=== PATIENT | male | born 1950 | race Caucasian/White ===

== ENCOUNTER 2020-06-19 05:33 | Observation (INO) ==
--- NOTE | 2020-06-18 11:19 | Anesthesiology Consultation ---
Date of Service June 18, 2020 Assessment & Plan (1) Encounter for pre-operative examination: - Per assessment 06/18: Travel screen negative. No known COVID-19 positive contacts or current COVID-19 related symptoms. Patient had COVID testing 06/15 which was negative. - Check BSG AM DOS Chart Review Chart Review: Acceptable Risk for Surgery and Patient seen in Pre Admission Testing Teaching & Discussion Pre-Anesthesia Teaching/Discussion Notes: Instructed NPO after midnight before surgery,except medications with 15 cc of water. Medication instructions provided according to the PAT guidelines. History Surgery Operation Date: 06/19/20 07:00 Proposed Procedures p Right ORIF Tibia Fracture - Steven Laura Richard MD Height/Weight Height: 5 ft 7 in Weight: 85 kg Allergies Allergy/AdvReac Type Severity Reaction Status Date / Time No Known Drug Allergies Allergy Unknown ` Verified 06/18/20 11:17 Medications Home Medications Medication Instructions Recorded Confirmed Last Taken acetaminophen [Tylenol] 325 mg PO QID PRN 06/18/20 06/18/20 Unknown aspirin 81 mg PO UD 06/18/20 06/18/20 Unknown cholecalciferol (vitamin D3) 25 mcg PO QAM 06/18/20 06/18/20 Unknown [Vitamin D3] metformin 500 mg PO QPM 06/18/20 06/18/20 Unknown trazodone 50 mg PO HS 06/18/20 06/18/20 Unknown Past Medical History Medical History Insomnia Prediabetes Past Surgical History Surgical History History of hand surgery circular saw accident and repair of fingers Social History Smoking Status: Never smoker Testing Laboratory Results 06/15/20 WBC 7.54 H/H 15.4/46.0 PLATELETS 173 SODIUM 138 POTASSIUM 3.7 CHLORIDE 105 CO2 26 BUN 23 CREATININE 1.18 GLUCOSE 111 Electrocardiogram Date: 06/15/20 SR with frequent PVC's at 94bpm. LAD. NS TWA. Chest X-Ray Date: 06/15/20 FINDINGS: The lungs are clear. Cardiac silhouette is normal in size. No pleural effusions. No pneumothorax. Old, healed left-sided rib fractures. IMPRESSION: No acute process.
--- NOTE | 2020-06-18 15:42 | History & Physical Report ---
Date of Service June 18, 2020 Assessment & Plan (1) Closed right tibial fracture: Patient is scheduled for surgery with Dr Richard on 06-19-20 for an Open Reduction Internal Fixation of a right tibia fracture. Dr Richard saw patient in office today and discussed potential risks, complications, and outcomes of surgery. The consent was signed by the patient as well as Dr Richard. The patient had pre-op work up in the ED including EKG and blood work. He had a rapid COVD 19 test in the ED as well. Patient is aware of COVD 19 risks. He is asymptomatic of any COVD 19 symptoms. This surgery is necessary and urgent for fixation fracture to allow early mobility and decrease chance of DVT/PE, prevent further fracture mal-alignment, destruction of soft tissue or o structures, or development of compartment syndrome. Patient was advised to hold his metformin. He was given phone number to call hospital for arrival time. Post-op pain medication was discussed and oxycodone was sent to pharmacy. Patient will also rely on tylenol for mild to moderate pain. He was advised to take ASA 81mg BID for DVT prophylaxis. He was given follow-up appointments for PT and office. Plan will be to stay overnight. Further discharge instructions to follow. Present on Admission?: Yes Admission and Anticipated Discharge Date Admission Date: 06-19-20 Anticipated date of discharge: 06/20/20 History of Present Illness Chief Complaint: Right Tib-Fib Fracture Primary Care Provider: CHINYERE Carmichael Nico is 69 yo male who was seen today for History and Physical Pre-Op examination leading up to surgery with Dr Richard on 06-19-20 for an Open Reduction Internal Fixation of Right Tibia. Patient was seen in ED on Thursday and follow-up with Dr Richard today in the office. He was playing volleyball with his grand children earlier Thursday afternoon when he landed awkwardly injuring his right leg. Xrays in the ED were obtained and Dr Richard was consulted for further evaluation and treatment. Patient was found to have a right tib-fib fracture and was splinted and advised be non-weightbearing and follow-up with Dr Richard today. Dr Richard discussed with the patient his diagnosis and treatment options ranging from conservative to surgical intervention. Patient would like to proceed with surgery. Allergies Allergy/AdvReac Type Severity Reaction Status Date / Time No Known Drug Allergies Allergy Unknown ` Verified 06/18/20 11:17 Home Medications Home Medications Medication Instructions Recorded Confirmed Type acetaminophen [Tylenol] 325 mg PO QID PRN 06/18/20 06/18/20 History aspirin 81 mg PO UD 06/18/20 06/18/20 History cholecalciferol (vitamin D3) 25 mcg PO QAM 06/18/20 06/18/20 History [Vitamin D3] metformin 500 mg PO QPM 06/18/20 06/18/20 History trazodone 50 mg PO HS 06/18/20 06/18/20 History Past Med/Surg History Medical History Insomnia Prediabetes Surgical History History of hand surgery circular saw accident and repair of fingers Social History Smoking Status: Never smoker Second Hand Exposure: No; Do You Dip or Chew Tobacco: No; Tobacco Cessation Education Requested by Patient: No Hx Alcohol Use: No Hx Substance Use: No Preferred Language: [place] Communication Ability: Effective Hand Hardener Required: No Beliefs That Will Affect Care: None marital status: Single Current Living Situation: Significant Other current occupational status: retired Other Information That Helps Us Care for You: No Feels Safe at Home: Yes Safety Concerns: Feels Safe At This Time Assistive Devices: Brace/Splint/Immobilizer and Walker Review of Systems Review of Systems: All systems reviewed & are unremarkable except as noted in HPI & below Physical Exam Physical Exam: CONSTITUTIONAL: Healthy and well nourished. Patient does not appear in any acute distress. 175cm tall, 90kg weight, 36.4 temp, 110/60 BP, 97 pulse ox, 100 HR HEENT: Normocephalic, atraumatic. Wearing glasses. PERRL. Extra-ocular movements intact. Nose nares patient. Mouth mucosa moist. Dentition good. NECK: Full active range of motion without discomfort. RESPIRATORY: Clear to auscultation bilaterally with no wheezing, crackles, rhonchi or stridor. CARDIOVASCULAR: Regular rate and rhythm with no murmurs, rubs or gallops. MUSCULOSKELETAL: Examination of the right lower extremity reveals splint intact. Able to wiggle toes. Sensation to toes intact. Upper calf is soft and supple to palpation. Patient has no tenderness to palpation about the knee joint lines or peripatellar region. Results & Data Results & Data ([facility]) Diagnostic Findings Print [facility] [place], [place] [phone] XRay Report Patient: NICO WEI Admit Date: 06/15/20 MR#: [id number] Address1: [address] [place] [address] Acct ID:[id number] Address2: Date: 1950 [facility] Zip: [place] [id number] Age: 69 Location: ED Sex: M Room/Bed: Att Phy: Diagnosis: LEG INJURY/PAIN Tiera Phy: Silvana Allen CRNP Service Date: 06/15/20 Fam Phy: Interpreting Phy: Brandt Martinez Admit Phy: Ordering Phy: Jordon Astorga MD cc: ~ XR tibia fibula RT 2V HISTORY: 69 years-old Male S/P TRIP AND FALL acute right leg pain status post fall COMPARISON: None TECHNIQUE: 2 views of the right tibia and fibula FINDINGS: There is an acute obliquely oriented linear displaced fracture of the proximal fibular metadiaphysis which is displaced anteriorly 4 mm. There is an acute obliquely oriented fracture involving the distal diaphyseal tibia with 9 mm lateral and 9 mm posterior displacement with slight apex molar angulation of 40 degrees. 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 IMPRESSION: 1. Acute oblique displaced fracture of the distal tibial diaphysis. 2. Acute mildly displaced oblique fracture of the proximal fibular metadiaphysis. ACT 112: Negative or not required by law. The above report was generated using voice recognition software. It may contain grammatical, syntax or spelling errors. Electronically signed by: Alton Martinez M.D. 06/15/2020 3:45 PM Dictated: 06/15/201541 Transcribed: 06/15/201541 (1) Closed right tibial fracture Encounter type: initial encounter Fracture morphology: other fracture Tibia location: distal Qualified Code(s): S82.391A - Other fracture of lower end of right tibia, initial encounter for closed fracture
[2020-06-19] MEDS ORDERED: LR 15ML/HR IV SCH (06:00)
[2020-06-19] MEDS ORDERED: BUPIVACAINE 0.5 % 5 MG/1 ML MPF 30ML VIAL ONE (06:36)
[2020-06-19] MEDS ORDERED: MIDAZOLAM HCL 1 MG/ML 2ML VIAL ONE ×2 (06:37→07:20)
[2020-06-19] MEDS ORDERED: fentaNYL citrate 100 MCG/2 ML VIAL ONE (06:37)
[2020-06-19] MEDS ORDERED: LIDOCAINE/EPINEPHRINE 1% 20 ML VIAL ONE (06:37)
--- NOTE | 2020-06-19 06:38 | History & Physical Bridge Note ---
Date of Service June 19, 2020 History & Physical Bridge Note I have examined the patient, reviewed the History & Physical and in the interval since the performance of the History & Physical I have noted the following changes of clinical significance: no changes noted Patient is aware of the risks, is asymptomatic, and tested negative for COVID- 19.
[2020-06-19] MEDS ORDERED: ROPIVACAINE 0.5% 5 MG/ML 30 ML VIAL ONE (07:22)
[2020-06-19] MEDS ORDERED: BUPIVACAINE 0.5 % 5 MG/1 ML PF 10ML VIAL ONE (07:22)
[2020-06-19] MEDS ORDERED: LIDOCAINE HCL 2% 2 ML VIAL/AMP(20MG/ML) INFIL ONE (08:03)
[2020-06-19] MEDS ORDERED: PROPOFOL IV EMULSION 10 MG/ML 20 ML VIAL IV ONE ×4 (08:03→10:26)
[2020-06-19] MEDS ORDERED: ONDANSETRON INJ 2 MG/ML 2 ML VIAL ONE (08:03)
--- NOTE | 2020-06-19 10:54 | Post Operative Brief Note ---
Immediate Post Op Note v1 Date of Surgery June 19, 2020 Pre & Post Diagnosis Operation Date: 06/19/20 07:00 Pre-Op Diagnosis: Closed right tibial fracture Post-Op Diagnosis: Closed right tibial fracture I identified the patient and participated in the time-out.: Yes Procedure Operation Date: 06/19/20 07:00 Actual Procedures p Right Open Reduction Internal Fixation Tibia Fracture(Right) - Steven Richard MD Surgeon Steven Richard MD Food Consultant Brijesh Shelton PA-C (No fellow avail) Estimated Blood Loss 100 Findings Consistent with Post-Op Diagnosis Fluids 1000 cc Anesthesia Type MAC Spinal Regional Complications none
--- NOTE | 2020-06-19 10:55 | Operative Report ---
Post Operative Report Pre & Post Diagnosis Operation Date: 06/19/20 07:00 Pre-Op Diagnosis: Closed right tibial fracture Post-Op Diagnosis: Closed right tibial fracture I identified the patient and participated in the time-out.: Yes Procedure Operation Date: 06/19/20 07:00 Actual Procedures p Right Open Reduction Internal Fixation Tibia Fracture(Right) - Steven Richard MD Surgeon Steven Richard MD Collection Support Specialist Brijesh Shelton PA-C (No fellow avail) Estimated Blood Loss 100 Findings See Below Displaced Right Tibial shaft fracture. Non-displaced proximal fibula fracture. Pre-patellar bursitis. Fluids 1000 cc Specimens n/a Anesthesia Type MAC Spinal Regional Complications none Indications The patient is a 69 year old male who sustained a right tibia fracture from a fall while playing volleyball with his grand children. The patients treatment options of conservative versus surgical intervention were discussed. I recommended surgery. The patient understands the risks of surgery, which include but are not limited to: bleeding, infection, re-operation, damage to nerves and arteries, continued pain, failure of the hardware, mal-union, non- union, DVT, and . The patient understands all of these instructions and explanations, all of their questions have been satisfactorily addressed. The patient has elected to proceed with surgery and the informed consent was signed. Description of Procedure IMPLANTS: 1. Synthes 10 mm x 345 mm Tibial Nail. 2. 5 x 32 & 34 mm proximal Locking screw. 3. 5 x 36 & 42 mm distal locking screws. 4. Standard 5 mm titanium end cap. PROCEDURE: The patient was taken to the Operating Room and placed in the supine position on the radiolucent Guevara table after general anesthesia was administered. A multidisciplinary time-out was performed identifying my initials on the right lower limb as the correct and operative limb. Prior to the incision being made, 2 grams of intravenous Ancef were given. Fluoroscopy was brought in to ensure adequate X-rays images could be obtained. The right lower extremity was prepped in the standard fashion. The planned anterior knee incision was marked. This incision and the stab incisions for the locking screws were injected with a 50:50 mixture of 1% Lidocaine with epi and 0.5% Bupivacaine plain for a total of 15 cc. The planned anterior incision was made and carried down through the prepatellar bursa which had mild chronic inflammation to the peritenon. The peritenon was split exposing the patellar tendon and was elevated to expose the patellar tendon, which was split in-line with its fibers to gain the starting point. Fluoroscopy was used to find the starting point. A starting guide wire was placed and the starting reamer was used to create the entry hole. While reducing the fracture with manual traction, the long guide wire was then placed across the fracture into the distal fragment down to the distal tibial physeal scar centrally in both the AP and lateral projections. The tibial canal was then sequentially reamed from an 8 up to a 12 mm reamer. A size 10 mm implant was selected. The implant was then inserted without difficulty. Small second and third incisions were made for placement of the proximal locking screws, which were placed using the aiming guide. An end cap was then placed in the standard fashion. The distal locking screws, 2 medial to lateral, were placed with perfect [place] technique. Final x-rays were obtained showing near anatomic alignment of the tibial shaft fracture and the proximal fibular fracture remained non-displaced. The wounds were copiously irrigated. The patellar tendon was closed with 0 Vicryl. The peritenon was closed with 2-0 Vicryl. The subcutaneous tissue was closed with 3-0 Vicryl. The anterior incision and stab incisions were closed with dar. The incisions were covered with Xeroform, 4x4s, ABD, sterile cast padding, and an AO splint was placed. The alignment of the lower leg was the same as the non-operative side. The patient was transfer to the hospital bed and taken to the PACU in stable condition. The sponge and needle counts were correct. Post-op Instructions: The patient was admitted for observation. The patient will be NWB. The patient will be seen by PT/OT. DVT prophylaxis will be with mechanical devices and ASA. I attest to the content of the Intraoperative Record and any orders documented therein. Any exceptions are noted below.
[2020-06-19] MEDS ORDERED: ePHEDrine sulfate 50 MG/ML AMP IV PRN (11:04)
[2020-06-19] MEDS ORDERED: ATROPINE SULFATE 0.1 MG/ML 10ML SYR IV PRN (11:04)
[2020-06-19] MEDS ORDERED: HYDROmorphone INJ 1 MG/ML SYRINGE IV PRN (11:11)
[2020-06-19] MEDS ORDERED: bisacodyL 10 MG SUPP PR PRN (11:11)
[2020-06-19] MEDS ORDERED: MAGNESIUM HYDROXIDE SUSP 30 ML UDC PO PRN (11:11)
[2020-06-19] MEDS ORDERED: NALOXONE HCL 0.4 MG/1 ML VIAL/CARP IV PRN (11:11)
[2020-06-19] MEDS ORDERED: ONDANSETRON INJ 2 MG/ML 2 ML VIAL IV PRN (11:11)
[2020-06-19] MEDS ORDERED: diphenhydrAMINE 50 MG/ML VIAL IV PRN (11:11)
[2020-06-19] MEDS ORDERED: diphenhydrAMINE Capsule 25 MG CAP PO PRN (11:11)
[2020-06-19] MEDS ORDERED: METOCLOPRAMIDE HCL INJ 5 MG/ML 2 ML VIAL IV PRN (11:11)
--- NOTE | 2020-06-19 11:14 | Operative Report ---
Post Operative Report Pre & Post Diagnosis Operation Date: 06/19/20 07:00 Pre-Op Diagnosis: Closed right tibial fracture Post-Op Diagnosis: Closed right tibial fracture I identified the patient and participated in the time-out.: Yes Procedure Operation Date: 06/19/20 07:00 Actual Procedures p Right Open Reduction Internal Fixation Tibia Fracture(Right) - Steven Richard MD Surgeon Steven Richard MD Fusing Machine Tender Brijesh Shelton PA-C (No fellow avail) Estimated Blood Loss 100 Findings Consistent with Post-Op Diagnosis Specimens none Complications none Indications See Dr Richard operative report Description of Procedure See Dr Richard operative report. I was teaching assistant during entire case from prepping, draping, limb and instrument handling. wound closure, splinting. I attest to the content of the Intraoperative Record and any orders documented therein. Any exceptions are noted below.
--- NOTE | 2020-06-19 11:22 | Fluoroscopy Report ---
FL tibia/fibula RT 2V CLINICAL HISTORY: Tibial fracture COMPARISON STUDY: 06/15/2020 FLUOROSCOPY TIME: 155 seconds. NUMBER OF FLUOROSCOPIC IMAGES: 6 FINDINGS: 6 intraoperative fluoroscopic spot images are provided for interpretation. There is been in ternal fixation of the spiral fracture of the tibia at the junction of middle and distal one third wi th an intramedullary yudith fixated proximally with 2 screws and distally with 2 screws. Again evident i s the oblique/spiral fracture the proximal fibula. IMPRESSION: Intraprocedural fluoroscopic spot images demonstrating an internally fixated tibial frac ture. ACT 112: Negative or not required by law. Electronically signed by: Carlos Burger M.D. 06/19/2020 11:21 AM
--- NOTE | 2020-06-19 11:25 | Anesthesiology Progress Note ---
Date of Service June 19, 2020 Anesthesia Post Procedure Vital Signs Vital Signs: Temp Pulse Resp BP BP Pulse Ox 06/19/20 11:20 70 16 132/82 100 06/19/20 11:10 71 19 127/75 99 06/19/20 11:00 36.3 C L 73 19 135/70 94 06/19/20 06:28 36.8 C 99 H 20 138/89 96 06/19/20 05:55 37 C 97 H 22 139/99 94 Pain Intensity Right Lower Leg: Pain Intensity: 3 Transfer of Care Handoff Completed per policy Notes Mental Status: alert / awake / arousable Patient Amnestic to Procedure: Yes Nausea / Vomiting: adequately controlled Pain: adequately controlled Airway Patency, RR, SpO2: stable & adequate BP & HR: stable & adequate Hydration State: stable & adequate Neuraxial Anesthesia: was administered and sensory block is resolving Anesthetic Complications: no major complications apparent
[2020-06-19] MEDS ORDERED: PHARMACY GLYCEMIC MGMT CONSULT PRN (11:27)
[2020-06-19] MEDS ORDERED: GLUCOSE 40% GEL 15 GM TUBE PO PRN (11:30)
[2020-06-19] MEDS ORDERED: GLUCOSE 10 TABS/TUBE PO PRN (11:30)
[2020-06-19] MEDS ORDERED: GLUCAGON FOR INJ 1 MG VIAL IM PRN (11:30)
[2020-06-19] MEDS ORDERED: DEXTROSE 50% 50 ML SYRINGE IV PRN (11:30)
[2020-06-19] MEDS ORDERED: CARBOHYDRATES FOR HYPOGLYCEMIA PO PRN (11:30)
--- NOTE | 2020-06-19 11:34 | Pharmacy Report ---
Glycemic Control Consultation - Date of Service June 19, 2020 - Scope Scope: Glycemic Pharmacist consulted for glycemic control and to write orders per [facility] inpatient glycemic control protocol. - Objective Weight: 88.3 kg Accuchecks BSG (last 24hrs): 06/19/20 06/19/20 05:59 11:02 POC Glucose 145 H 121 H - Recent Pertinent Medications Outpatient Anti-diabetic Regimen: * metformin 500 qam * A1c = pending for 06/20 Risk Factors for Insulin Resistance: * Recent Surgery: POD 0 * Diet: yes - Assessment & Plan Assessment & Plan: ASSESSMENT: * Patient is s/p tibia fracture repair, POD 0. Pharmacy consulted for glycemic management. Patient with diabetes on metformin at home. * No steroids received preop/intraop - will utilize correctional insulin only. Basal insulin not indicated at this time PLAN FOR INPATIENT GLYCEMIC CONTROL: nsulin infusion has been shown to be the best method for achieving glycemic targets. * Holding outpatient oral diabetes medications * Basal insulin * Lantus - hold * Bolus insulin * NovoLog per scale ACHS or Q6hrs while NPO * Goal Range: Low 110 mg/dL - High 140 mg/dL * Correction Factor: 25 mg/dL/unit * Nutritional / Prandial insulin per carb ratio of 1 unit per -- grams CHO consumed * Please note that the plan above was derived based on current level of insulin resistance and hospital stress. These recommendations are appropriate for inpatient admission only. Plan of care upon discharge will need to be reassessed to avoid potential outpatient hypo/hyperglycemia. Thank you.
[2020-06-19] MEDS ORDERED: HYDROmorphone INJ 0.5 MG/0.5 ML SYR ONE (13:04)
[2020-06-19] MEDS: HYDROmorphone INJ 0.5 MG/0.5 ML SYR IV PRN ×2 (13:05→13:15)
[2020-06-19] MEDS: INSULIN ASPART 100 UNITS/ML 3 ML PEN SC SCH ×3 (14:25→20:47)
[2020-06-19] MEDS: ACETAMINOPHEN 500 MG TAB PO SCH ×2 (14:46→21:28)
[2020-06-19] MEDS: ceFAZolin 2000MG 2,000 MG/15 ML SYR IV SCH ×2 (14:47→21:29)
[2020-06-19] MEDS: SODIUM CHLORIDE 0.9% 1000ML 1,000 ML IV SCH ×2 (14:53→21:29)
--- NOTE | 2020-06-19 15:10 | Orthopedic Progress Note ---
Date of Service June 19, 2020 Assessment & Plan (1) Closed right tibial fracture: POD #0 s/p IM rodding right Tibia, doing as well as expected. Resume diet. NWB. OOB to chair. Continue pain control. Check labs tomorrow. DVT prophylaxis: TEDs 3 weeks, foot pumps while in hospital, ASA 81 mg BID for 6 weeks. PT/OT. D/C planning. Present on Admission?: Yes (2) Closed fracture of proximal end of right fibula: Conservative treatment. Follow above plan. Present on Admission?: Yes Admission and Anticipated Discharge Date Admission Date: June 19, 2020 Subjective Right leg pain Review of Systems Review of Systems: All systems reviewed & are unremarkable except as noted in HPI & below Physical Exam Physical Exam: RLE: Dressing/Splint clean, dry, intact. Wiggling toes. BCR < 2 sec. Sensation to light touch is intact. Able to preform straight leg raise. Results & Data ([facility]) Vital Signs (Past 12 Hours) Vital Signs Temp Pulse Resp BP BP Pulse Ox 06/19/20 13:30 36.7 C 99 H 18 122/80 96 06/19/20 13:05 94 H 19 135/85 95 06/19/20 12:45 92 H 24 151/93 H 98 06/19/20 12:30 89 14 138/89 96 06/19/20 12:15 78 15 117/86 98 06/19/20 12:05 78 17 128/74 99 06/19/20 11:50 75 14 114/85 100 06/19/20 11:35 72 19 141/84 H 100 06/19/20 11:20 36.8 C 70 16 132/82 100 06/19/20 11:10 71 19 127/75 99 06/19/20 11:00 36.3 C L 73 19 135/70 94 06/19/20 06:28 36.8 C 99 H 20 138/89 96 06/19/20 05:55 37 C 97 H 22 139/99 94 (1) Closed right tibial fracture Encounter type: initial encounter Fracture morphology: other fracture Tibia location: distal Qualified Code(s): S82.391A - Other fracture of lower end of right tibia, initial encounter for closed fracture (2) Closed fracture of proximal end of right fibula Encounter type: initial encounter Fracture morphology: other fracture Qualified Code(s): S82.831A - Other fracture of upper and lower end of right fibula, initial encounter for closed fracture
[2020-06-19] MEDS: FERROUS GLUCONATE 324 MG TAB PO SCH (18:12)
[2020-06-19] MEDS: ASCORBIC ACID 500 MG TAB PO SCH (18:13)
[2020-06-19] MEDS: oxyCODONE HCL IR 5 MG TAB (IMMEDIATE RELEASE) PO PRN (19:46)
[2020-06-19] MEDS ORDERED: SENNA 8.6 MG TAB PO SCH (21:00)
[2020-06-19] MEDS ORDERED: traZODone HCL 50 MG TAB PO SCH (21:00)
[2020-06-19] MEDS: DOCUSATE SODIUM 100 MG CAP PO SCH (21:28)
[2020-06-20] MEDS: oxyCODONE HCL IR 5 MG TAB (IMMEDIATE RELEASE) PO PRN ×2 (02:24→07:41)
[2020-06-20] MEDS: ACETAMINOPHEN 500 MG TAB PO SCH ×2 (05:19→12:53)
[2020-06-20 06:23] LABS: Hematocrit (blood only) 37.4 % (42-52); Hemoglobin 12.6 g/dL (14.0-18.0); Mean Corpuscular Hemoglobin 32.8 pg (25-34); Mean Corpuscular Hgb Conc 33.7 g/dL (32-36); Mean Corpuscular Volume 97.4 fL (80-100); Mean Platelet Volume 10.3 fL (7.4-10.4); Platelet Count 161 K/uL (130-400); RDW Coefficient of Variation 13.1 % (11.5-14.5); RDW Standard Deviation 46.3 fL (36.4-46.3); Red Blood Count 3.84 M/uL (4.7-6.1); White Blood Count 7.42 K/uL (4.8-10.8)
[2020-06-20 07:06] LABS: BUN Creatinine Ratio 17.2 (10-20); Calcium 8.6 mg/dl (8.5-10.1); Creatinine Clr Calc Pharmacy 94.1 ml/min; Est GFR (African American) 104.4; Potassium 4.2 mmol/L (3.5-5.1)
[2020-06-20] MEDS: ASPIRIN 81 MG ECTAB PO SCH ×2 (07:41→10:26)
[2020-06-20] MEDS: ASCORBIC ACID 500 MG TAB PO SCH (07:43)
[2020-06-20] MEDS: DOCUSATE SODIUM 100 MG CAP PO SCH (07:43)
[2020-06-20] MEDS: FERROUS GLUCONATE 324 MG TAB PO SCH (07:43)
[2020-06-20 08:19] LABS: Estimated Average Glucose 114 mg/dl; Hemoglobin A1C 5.6 % (4.5-5.6)
--- NOTE | 2020-06-20 08:52 | Orthopedic Progress Note ---
Date of Service June 20, 2020 Assessment & Plan (1) Closed right tibial fracture: POD #1 s/p IM rodding right Tibia, doing as well as expected. Continue diet. NWB R LE with walker OOB to chair. Continue PO pain control. DVT prophylaxis: TEDs 3 weeks, foot pumps while in hospital, ASA 81 mg BID for 6 weeks. PT/OT this AM D/C planning to home today after AM PT. Outpatient PT scheduled for 06-25-20. I, Dr. Richard, saw and examined the patient and discussed the management with my PA. I reviewed my PAs note and agree with the documented findings and the plan of care I developed. (2) Closed fracture of proximal end of right fibula: Conservative treatment. Follow above plan. Admission and Anticipated Discharge Date Admission Date: June 19, 2020 Subjective Patient in bed. Watching TV. States pain is controlled on PO oxycodone. Elevating right leg and using ice. He has been to the bathroom a few times NWBING R LE with walker. He is able to urinate. He is eating. He denies F/C/S, CP, SOB, lightheadedness, dizziness, N/T/R into legs. He would like to go home today. Review of Systems Review of Systems: All systems reviewed & are unremarkable except as noted in HPI & below Physical Exam Physical Exam: Patient comfortable in bed. No distress. A and O x 3. Right leg elevated. Ice on. Able to wiggle toes. Sensation intact light touch. Brisk capillary refill. Splint on and intact. Left leg with taj hose and foot pumps. Calve soft. NV intact, Results & Data ([facility]) Vital Signs (Past 12 Hours) Vital Signs Temp Pulse Resp BP Pulse Ox 06/20/20 07:59 36.6 C 87 18 138/86 93 06/20/20 02:17 36.6 C 95 H 16 166/85 H 95 06/19/20 22:58 36.8 C 94 H 16 135/81 94 Laboratory Results 06/20/20 06/20/20 06/20/20 Range/Units 08:13 06:11 06:11 WBC 7.42 (4.8-10.8) K/uL RBC 3.84 L (4.7-6.1) M/uL Hgb 12.6 L (14.0-18.0) g/dL Hct 37.4 L (42-52) % MCV 97.4 (80-100) fL MCH 32.8 (25-34) pg MCHC 33.7 (32-36) g/dL RDW Std Deviation 46.3 (36.4-46.3) fL RDW Coeff of Kassy 13.1 (11.5-14.5) % Plt Count 161 (130-400) K/uL MPV 10.3 (7.4-10.4) fL Sodium 139 (136-145) mmol/L Potassium 4.2 (3.5-5.1) mmol/L Chloride 106 (98-107) mmol/L Carbon Dioxide 29 (21-32) mmol/L Anion Gap 4.0 (3-11) BUN 14 (7-18) mg/dl Creatinine 0.81 (0.6-1.4) mg/dl Est Cr Clr Drug Dosing 94.1 ml/min Est GFR ( Amer) 104.4 Est GFR (Non-Af Amer) 90.0 BUN/Creatinine Ratio 17.2 (10-20) Glucose 133 H (70-99) mg/dl POC Glucose 135 H (70-99) mg/dl Estimat Average Glucose mg/dl Hemoglobin A1c (4.5-5.6) % Calcium 8.6 (8.5-10.1) mg/dl 06/20/20 06/19/20 06/19/20 Range/Units 06:11 19:55 16:55 WBC (4.8-10.8) K/uL RBC (4.7-6.1) M/uL Hgb (14.0-18.0) g/dL Hct (42-52) % MCV (80-100) fL MCH (25-34) pg MCHC (32-36) g/dL RDW Std Deviation (36.4-46.3) fL RDW Coeff of Kassy (11.5-14.5) % Plt Count (130-400) K/uL MPV (7.4-10.4) fL Sodium (136-145) mmol/L Potassium (3.5-5.1) mmol/L Chloride (98-107) mmol/L Carbon Dioxide (21-32) mmol/L Anion Gap (3-11) BUN (7-18) mg/dl Creatinine (0.6-1.4) mg/dl Est Cr Clr Drug Dosing ml/min Est GFR ( Amer) Est GFR (Non-Af Amer) BUN/Creatinine Ratio (10-20) Glucose (70-99) mg/dl POC Glucose 136 H 112 H (70-99) mg/dl Estimat Average Glucose 114 mg/dl Hemoglobin A1c 5.6 (4.5-5.6) % Calcium (8.5-10.1) mg/dl 06/19/20 06/19/20 Range/Units 14:00 11:02 WBC (4.8-10.8) K/uL RBC (4.7-6.1) M/uL Hgb (14.0-18.0) g/dL Hct (42-52) % MCV (80-100) fL MCH (25-34) pg MCHC (32-36) g/dL RDW Std Deviation (36.4-46.3) fL RDW Coeff of Kassy (11.5-14.5) % Plt Count (130-400) K/uL MPV (7.4-10.4) fL Sodium (136-145) mmol/L Potassium (3.5-5.1) mmol/L Chloride (98-107) mmol/L Carbon Dioxide (21-32) mmol/L Anion Gap (3-11) BUN (7-18) mg/dl Creatinine (0.6-1.4) mg/dl Est Cr Clr Drug Dosing ml/min Est GFR ( Amer) Est GFR (Non-Af Amer) BUN/Creatinine Ratio (10-20) Glucose (70-99) mg/dl POC Glucose 135 H 121 H (70-99) mg/dl Estimat Average Glucose mg/dl Hemoglobin A1c (4.5-5.6) % Calcium (8.5-10.1) mg/dl (1) Closed fracture of proximal end of right fibula Encounter type: initial encounter Fracture morphology: other fracture Qualified Code(s): S82.831A - Other fracture of upper and lower end of right fibula, initial encounter for closed fracture (2) Closed right tibial fracture Encounter type: initial encounter Fracture morphology: other fracture Tibia location: distal Qualified Code(s): S82.391A - Other fracture of lower end of right tibia, initial encounter for closed fracture
[2020-06-20] MEDS ORDERED: MULTIVITAMIN TAB PO SCH (09:00)
[2020-06-20] MEDS ORDERED: CHOLECALCIFEROL 1,000 UNITS 25 MCG TAB PO SCH (09:00)
[2020-06-20] MEDS: INSULIN ASPART 100 UNITS/ML 3 ML PEN SC SCH ×2 (09:10→13:24)
--- NOTE | 2020-06-20 13:51 | Pharmacy Report ---
Pharmacy Glycemic Sign Off Nt - Date of Service June 20, 2020 - Assessment & Plan ASSESSMENT: * Pharmacy was consulted by Anna Shelton on 06/19 for glycemic control and to write orders per [facility] inpatient glycemic control protocol. * Major changes made by pharmacy to antidiabetic regimen include: * added SSI * Patient has been receiving/requiring 0 units of insulin per day for adequate glycemic control * BSGs ranging 121-171 mg/dl * Regimen has only required minor adjustments over the past 48hrs to achieve this level of control * Do not anticipate further changes in patient status that would quickly deteriorate glycemic control (i.e. patient to be NPO for upcoming procedure, steroids tapering, starting tube feedings, etc). * Please see recommendations for outpatient antidiabetic regimen below. PLAN FOR INPATIENT GLYCEMIC CONTROL: No changes needed to current regimen. * Resume home metformin * Continue NovoLog per scale ACHS/Q6hrs while NPO * Goal range = 110 - 140 mg/dl * CF = 25 mg/dl/unit * CR = 1 unit for ever -- g CHO consumed * Pharmacy is signing off of glycemic consult and will no longer be making adjustments to inpatient regimen. Please feel free to re-consult if needed. Thank you. DISCHARGE RECOMMENDATIONS: * A1c 5.6 % on 06/20 - okay to resume metformin as long as no contraindications present
[2020-06-20] MEDS ORDERED: metFORMIN HCL ER 500 MG TABCR PO SCH (16:30)
--- NOTE | 2020-06-21 09:16 | Discharge Summary ---
Date of Service June 21, 2020 Admission HPI Per Admitting Provider Chad is 69 yo male who was seen today for History and Physical Pre-Op examination leading up to surgery with Dr Richard on 06-19-20 for an Open Reduction Internal Fixation of Right Tibia. Patient was seen in ED on Thursday and follow-up with Dr Richard today in the office. He was playing volleyball with his grand children earlier Thursday afternoon when he landed awkwardly injuring his right leg. Xrays in the ED were obtained and Dr Richard was consulted for further evaluation and treatment. Patient was found to have a right tib-fib fracture and was splinted and advised be non-weightbearing and follow-up with Dr Richard today. Dr Richard discussed with the patient his diagnosis and treatment options ranging from conservative to surgical intervention. Patient would like to proceed with surgery. Principal Diagnosis Right Tib-Fib Facture Discharge Data Allergies Allergy/AdvReac Type Severity Reaction Status Date / Time No Known Drug Allergies Allergy Unknown ` Verified 06/19/20 05:58 Consultations 06/19/20 11:11 Consult Case Management - Discharge Planning Routine Procedures Performed Operation Date: 06/19/20 07:00 Actual Procedures p Right Open Reduction Internal Fixation Tibia Fracture(Right) - Steven Laura Richard MD Ordered Studies 06/19/20 05:00 US - OR guided needle placemen Routine 06/19/20 07:00 FL fluoroscopy <1hr Routine FL tibia/fibula RT 2V Routine Hospital Course (1) Closed right tibial fracture: 69-year-old male underwent IM rodding of right tibia June [address] Richard. Tolerated spinal anesthesia. Surgery without complications. Admitted to floor for 23 hour observation. While in-house patient received 24-hour postop antibiotic. He tolerated p.o. diet and fluids. Pain was well controlled. DVT prophylaxis consisted of aspirin 81 mg twice daily, SEEMA hose, foot pumps. Patient seen postop day 1. AM labs within normal limits and vital signs within normal limits. Seen by OT PT. Able to ambulate nonweightbearing to right lower extremity with walker. Deemed stable to be discharged home with . Upon discharge was given instructions to continue ice and elevation, Tylenol for mild to moderate pain, Oxycodone for severe pain, aspirin 81 mg t wice daily for 6 weeks for DVT prophylaxis, SEEMA hose to the opposite lower extremity. He was educated on splint care. He will remain nonweightbearing to right lower extremity with walker. He has a follow-up appointment in our office with physical therapy on Thursday to be switched to a cam boot and a 2-week postop appointment in our office for staple removal. Please see discharge instructions for more detailed information. Patient advised to call the office with any problems questions or concerns. (2) Closed fracture of proximal end of right fibula: Conservative treatment. Follow above plan. Total Time Total Time Spent Total Time Spent (In Minutes): 20min Discharge Plan Discharge Items Patient Disposition: Home - Self-Care Reason For Visit: Fracture Right Tibia/Fibula Discharge Diagnosis: Fracture Right Tibia/Fibula Activity: As commented below Lifting: None Lifting Comment: right leg Bathing: Keep incision dry Bathing Comment: keep splint on, clean, dry Exercise/Sports: Wait until after follow-up appointment Driving/Machine Use: no driving until cleared by surgeon Weightbearing: Right non-weightbearing Weightbearing Comment: with walker Non-emergency contact: Surgeon Call non-emergency contact if: your pain is not controlled, your temperature is above 101.5, your wound has increased redness and your wound has increased drainage Follow-up/Referrals: Silvana Allen CRNP [Primary Care Provider] - Mireya Shelton P.A.-C. [Physician Travel Journalist] - 07/02/20 2:00 pm (Physical Therapy on 06/25 at 10:30am) Diet: Carb Consistent or DM2 Addtl Attending Provider Instructions: MEDICATIONS: * Please take your prescriptions as instructed at your pre-op appointment and/or see medication discharge instructions listed above *Aspirin 81mg twice daily for 30 days for prevention of blood clots then return to regular daily dose *Tylenol 1000mg 3xs a day as needed for mild to moderate pain *Oxycodone 5mg as prescribed as needed for severe pain (this was previously sent to your pharmacy) * If concerns develop, call your physician's office at . SPECIAL CARE INSTRUCTIONS: * Ice right leg at least 3-5xs a day for 10-20min. Elevate as much as possible. For pain and swelling * Keep splint and dressings clean, dry, intact. * Nonweightbearing R leg with walker * Your surgical extremity may be discolored due to prepping agents used on the skin. A bluish-green tint is a normal variant and should not cause alarm. Call your doctor at [phone] if: * Temperature above 101 degrees * Pain not relieved by pain medicine ordered * There is increased drainage or redness from any incision * You have any unanswered questions, problems or concerns. FOLLOW UP VISIT: * If not already scheduled, please call the office at to schedule a follow-up appointment. Pending Studies at Discharge: No Stand-Alone Forms: [facility] [place], Smoking Cessation Medications and DC Order Prescriptions: Continued metformin 500 mg Tablet 500 mg PO QPM RF: 0 trazodone 50 mg Tablet 50 mg PO HS RF: 0 cholecalciferol (vitamin D3) [Vitamin D3] 25 mcg (1,000 unit) Tablet 25 mcg PO QAM RF: 0 Discontinued acetaminophen [Tylenol] 325 mg Tablet 325 mg PO QID PRN (Reason: Pain) RF: 0 aspirin 81 mg Tablet,Delayed Release (Dr/Ec) 81 mg PO UD RF: 0 Discharge Orders: Discharge Order (Routine); Ordered 06/20/20 Ordered By: Mireya Nelson/Other Patient Handouts: DVT Post Op Prevention Admission Data Admit Date/Time: 06/19/20 11:11 Attending Provider: Steven Richard Admit Provider: Steven Richard Primary Care Provider: Silvana Allen Other Interventions: Discharge Summary Assessment (RN) Last Done: 06/20/20 13:25
== END 2020-06-20 14:20 | disposition home or self-care (01) ==
LOC: ASU 05:33 → 3N 05:33